=== PATIENT | female | born 1995 | race American Indian/Alaskan Native ===

== ENCOUNTER 2018-03-10 12:38 | Emergency (ER) | payer OTHER ==
--- NOTE | 2018-03-10 13:09 | Emergency Department Report ---
ED HPI - General Chief complaint: Vaginal Bleeding Stated complaint: 15 WEEKS /HEAVY BLEEDING/CHEST PAIN Source: patient Mode of arrival: Ambulatory Limitations: No Limitations - History of Present Illness Initial comments: This is a 22 year-old female that is 15 weeks with abdominal pain and vaginal bleeding for 2 weeks. Patient states bleeding initially started out as spotting which has increased today requiring use of a panty liner. Patient states she changed panty liner every hour. She also reports some intermittent cramping to suprapubic region. Last menstrual period was 11/25/2017, A0. Patient's GRADING M[facility]INE [facility]ER is Dr. Kurt Yusuf in [place]. Patient states she was seen there on March 01 and diagnosed with a UTI. She completed antibiotics. She denies frequency, urgency, dysuria, vaginal discharge, or back pain. MD Complaint: abdominal pain, vaginal bleeding Onset/Timin -: week(s) Location: pelvis Radiation: none Severity: mild Severity scale (0 -10): 2 Quality: cramping Consistency: intermittent Improves with: none Worsens with: none Associated symptoms: vaginal bleeding, abdominal pain. denies: nausea/vomiting, vaginal discharge, dysuria, headache, vision changes, malaise, dysparuenia, rash, seizure, shortness of breath, syncope, weakness Vaginal bleeding: light :: Yes Number of weeks : 15 OB History - Current : no complications Last menstrual period: 11/25/17 Pre-josselin care: followed by OB - Related Data : 1 Para: 0 Ab: 0 Allergies Allergy/AdvReac Type Severity Reaction Status Date / Time No Known Allergies Allergy Verified 03/10/18 13:01 ED Review of Systems ROS: Stated complaint: 15 WEEKS /HEAVY BLEEDING/CHEST PAIN Other details as noted in HPI Constitutional: denies: chills, fever Respiratory: denies: cough, shortness of breath, wheezing Cardiovascular: denies: chest pain, palpitations Gastrointestinal: abdominal pain. denies: nausea, diarrhea Genitourinary: other (vaginal bleed and/or ). denies: urgency, dysuria, discharge Musculoskeletal: denies: back pain, joint swelling, arthralgia Neurological: denies: headache, weakness, paresthesias Psychiatric: denies: anxiety, depression ED Past Medical Hx - Past Medical History Previous Medical History?: No - Surgical History Past Surgical History?: No - Social History Smoking Status: Never Smoker ED Physical Exam - General Limitations: No Limitations General appearance: alert, in no apparent distress - Respiratory Respiratory exam: Present: normal lung sounds bilaterally. Absent: respiratory distress - Cardiovascular Cardiovascular Exam: Present: regular rate, normal rhythm. Absent: systolic murmur, diastolic murmur, rubs, gallop - GI/Abdominal GI/Abdominal exam: Present: soft, tenderness (suprapubic tenderness), normal bowel sounds. Absent: distended, guarding, rebound, rigid, organomegaly, mass - Back Exam Back exam: Absent: CVA tenderness (R), CVA tenderness (L) - Neurological Exam Neurological exam: Present: alert, oriented X3 - Psychiatric Psychiatric exam: Present: normal affect, normal mood - Skin Skin exam: Present: warm, dry, intact, normal color. Absent: rash ED Course Vital Signs 03/10/18 03/10/18 12:46 14:55 Temperature 97.8 F Pulse Rate 128 H 88 Respiratory 16 18 Rate Blood Pressure 128/73 O2 Sat by Pulse 99 Oximetry ED Medical Decision Making - Lab Data Result diagrams: 03/10/18 13:13 Lab Results 03/10/18 03/10/18 03/10/18 Range/Units 13:00 13:13 13:13 WBC 10.3 (4.5-11.0) K/mm3 RBC 4.06 (3.65-5.03) M/mm3 Hgb 12.8 (10.1-14.3) gm/dl Hct 38.1 (30.3-42.9) % MCV 94 (79-97) fl MCH 31 (28-32) pg MCHC 33 (30-34) % RDW 14.2 (13.2-15.2) % Plt Count 216 (140-440) K/mm3 Lymph % (Auto) 17.2 (13.4-35.0) % Towns % (Auto) 6.6 (0.0-7.3) % Eos % (Auto) 0.5 (0.0-4.3) % Baso % (Auto) 0.3 (0.0-1.8) % Lymph # 1.8 (1.2-5.4) K/mm3 [place] # 0.7 (0.0-0.8) K/mm3 Eos # 0.1 (0.0-0.4) K/mm3 Baso # 0.0 (0.0-0.1) K/mm3 Seg Neutrophils % 75.4 H (40.0-70.0) % Seg Neutrophils # 7.8 H (1.8-7.7) K/mm3 HCG, Quant (0-4) mIU/mL Urine Color Yellow (Yellow) Urine Turbidity Slightly-cloudy (Clear) Urine pH 6.0 (5.0-7.0) Ur Specific [place] 1.019 (1.003-1.030) Urine Protein <15 mg/dl (Negative) mg/dL Urine Glucose (UA) Neg (Negative) mg/dL Urine Ketones 80 (Negative) mg/dL Urine Blood Sm (Negative) Urine Nitrite Neg (Negative) Urine Bilirubin Neg (Negative) Urine Urobilinogen < 2.0 (<2.0) mg/dL Ur Leukocyte Esterase Lg (Negative) Urine WBC (Auto) 6.0 (0.0-6.0) /HPF Urine RBC (Auto) 15.0 (0.0-6.0) /HPF U Epithel Cells (Auto) 5.0 (0-13.0) /HPF Urine Bacteria (Auto) 1+ (Negative) /HPF Urine Mucus 1+ /HPF Blood Type A POSITIVE Antibody Screen Negative 03/10/18 Range/Units 13:13 WBC (4.5-11.0) K/mm3 RBC (3.65-5.03) M/mm3 Hgb (10.1-14.3) gm/dl Hct (30.3-42.9) % MCV (79-97) fl MCH (28-32) pg MCHC (30-34) % RDW (13.2-15.2) % Plt Count (140-440) K/mm3 Lymph % (Auto) (13.4-35.0) % [place] % (Auto) (0.0-7.3) % Eos % (Auto) (0.0-4.3) % Baso % (Auto) (0.0-1.8) % Lymph # (1.2-5.4) K/mm3 [place] # (0.0-0.8) K/mm3 Eos # (0.0-0.4) K/mm3 Baso # (0.0-0.1) K/mm3 Seg Neutrophils % (40.0-70.0) % Seg Neutrophils # (1.8-7.7) K/mm3 HCG, Quant [id number] H (0-4) mIU/mL Urine Color (Yellow) Urine Turbidity (Clear) Urine pH (5.0-7.0) Ur Specific [place] (1.003-1.030) Urine Protein (Negative) mg/dL Urine Glucose (UA) (Negative) mg/dL Urine Ketones (Negative) mg/dL Urine Blood (Negative) Urine Nitrite (Negative) Urine Bilirubin (Negative) Urine Urobilinogen (<2.0) mg/dL Ur Leukocyte Esterase (Negative) Urine WBC (Auto) (0.0-6.0) /HPF Urine RBC (Auto) (0.0-6.0) /HPF U Epithel Cells (Auto) (0-13.0) /HPF Urine Bacteria (Auto) (Negative) /HPF Urine Mucus /HPF Blood Type Antibody Screen - Radiology Data Radiology results: report reviewed OB ULTRASOUND GREATER THAN 14 WEEKS INDICATION: Suprapubic pain and vaginal bleeding. COMPARISON: None similar at this institution. TECHNIQUE: Transabdominal grayscale ultrasound with Doppler interrogation. Gestation: Link Position: Cephalic Amniotic Fluid: WNL (< 24 weeks, subjective) Placenta: Posterior Placental Grade: 0 Heart Rate: 170 BPM Cervical length: 3.2 cm (Normal > 3 cm) It is too early for a anatomical survey BPD: 3.2 cm = 15 w 6 d HC: 11.7 cm = 15 w 5 d AC: 9.7 cm = 15 w 6 d FL: 1.7 cm = 15 w 0 d HC/AC Ratio: 1.2 Cephalic Index: 82.9 Clinical age = 15 w 0 d EDC: 09/01/2018 US Gest. Age = 15 w 4 d EDC: 08/28/2018 CONCLUSION: Single, viable intrauterine gestation with ultrasound estimated age of 15 weeks and 4 days and EDC of 08/28/2018, currently in cephalic lie with details, as above. - Medical Decision Making This is a 22 y.o. female presents with vaginal bleeding during for 2 weeks. Patient was examined by me. Vitals are normal and patient is in no acute distress. Obtained a labs and OB ultrasound. Quant [id number], all other labs unremarkable. Single, viable intrauterine gestation with ultrasound estimated age of 15 weeks and 4 days and EDC of 08/28/2018, currently in cephalic lie with details, as above. Patient instructed to follow up with [employer]. Patient discharged home in stable condition. Critical care attestation.: If time is entered above; I have spent that time in minutes in the direct care of this critically ill patient, excluding procedure time. ED Disposition Clinical Impression: Vaginal bleeding before 22 weeks gestation, Threatened miscarriage Pelvic pain affecting Qualifiers: Trimester: second trimester Qualified Code(s): O26.892 - Other specified related conditions, second trimester Disposition: DC- TO HOME OR SELFCARE Is pt being admited?: No Does the pt Need Aspirin: No Condition: Stable Instructions: Threatened Miscarriage (ED), (ED) Additional Instructions: Follow up with [employer]. Remain on bed rest. Follow up with [facility] [facility]INE [employer] in 24-48 hours. Return to ER if increased vaginal bleeding, abdominal pain, and low back pain. Referrals: KURT YUSUF MD [Primary Care Provider] - 3-5 Days Forms: Accompanied Note, Work/School Release Form(ED) Time of Disposition: 14:47
[2018-03-10 13:16] LABS: Bacteria,Urine 1+ /HPF (Negative); Bilirubin,Urine NEG (Negative); Blood,Urine SM (Negative); Color,Urine Yellow (Yellow); Mucus,Urine 1+ /HPF; Protein,Urine <15 mg/dL mg/dL (Negative); Urobilinogen,Urine < 2.0 mg/dL (<2.0)
[2018-03-10 13:28] LABS: Basophils % (Auto) 0.3 % (0.0-1.8); Eosinophils # (Auto) 0.1 K/mm3 (0.0-0.4); Eosinophils % (Auto) 0.5 % (0.0-4.3); Hematocrit 38.1 % (30.3-42.9); Hemoglobin 12.8 gm/dl (10.1-14.3); Lymphocytes # (Auto) 1.8 K/mm3 (1.2-5.4); Lymphocytes % (Auto) 17.2 % (13.4-35.0); Mean Corpuscular HGB Conc 33 % (30-34); Mean Corpuscular Volume 94 fl (79-97); Monocytes # (Auto) 0.7 K/mm3 (0.0-0.8); Monocytes % (Auto) 6.6 % (0.0-7.3); Platelet Count 216 K/mm3 (140-440); Red Blood Count 4.06 M/mm3 (3.65-5.03); Red Cell Distribution Width 14.2 % (13.2-15.2)
--- NOTE | 2018-03-10 14:31 | Ultrasound Report ---
OB ULTRASOUND GREATER THAN 14 WEEKS INDICATION: Suprapubic pain and vaginal bleeding. COMPARISON: None similar at this institution. TECHNIQUE: Transabdominal grayscale ultrasound with Doppler interrogation. Gestation: Link Position: Cephalic Amniotic Fluid: WNL (< 24 weeks, subjective) Placenta: Posterior Placental Grade: 0 Heart Rate: 170 BPM Cervical length: 3.2 cm (Normal > 3 cm) It is too early for a anatomical survey BPD: 3.2 cm = 15 w 6 d HC: 11.7 cm = 15 w 5 d AC: 9.7 cm = 15 w 6 d FL: 1.7 cm = 15 w 0 d HC/AC Ratio: 1.2 Cephalic Index: 82.9 Clinical age = 15 w 0 d EDC: 09/01/2018 US Gest. Age = 15 w 4 d EDC: 08/28/2018 CONCLUSION: Single, viable intrauterine gestation with ultrasound estimated age of 15 weeks and 4 days and EDC of 08/28/2018, currently in cephalic lie with details, as above. Thank you for the opportunity to participate in this patient's care.
[2018-03-12 12:06] VITALS: BP 128/73
== END 2018-03-10 14:56 | disposition home or self-care (01) ==
LOC: ED 12:38
DX: O20.0 Threatened abortion (principal); Z3A.22 22 weeks gestation of pregnancy
CPT/HCPCS: 36415; 76805; 81001; 84702; 85025; 86850; 86900; 86901

== ENCOUNTER 2018-04-22 09:44 | Emergency (ER) | payer OTHER ==
[2018-04-22] MEDS ORDERED: NACL 0.9% 1000 ML 1,000 ML IV ONE (10:21)
--- NOTE | 2018-04-22 10:28 | Emergency Department Report ---
ED Trauma HPI - General Chief Complaint: Fall Stated Complaint: FALL/R EYE INJURY Time Seen by Provider: 04/22/18 10:06 - History of Present Illness Initial Comments: This is a 22-year-old female who is said to be 5 months . The patient herself is not providing much historical information. She will barely tell me her name and follow directions. She appears to be with depressed or flat affect but not in obvious distress. She is here with her boyfriend's mother and boyfriend. The mother reports that the patient slipped on the stairs striking her orbital area of her right eye on a wooden railing. The exact mechanism of injury was somewhat vague in terms of whether the patient had a secondary injury to any other part of her body. The boyfriend's mother tells me that she did not tumble down the stairs. The boyfriend's mother states that she just slipped. No loss of consciousness is reported. No secondary impact to the patient's IV is reported. On preliminary examination, the patient's right palpebral fissure does have significant but not profuse bleeding. There is substantial ecchymosis and swelling of the periorbital area on the right such that the effected globe itself cannot be visualized. Acute ruptured is suspected and cannot be excluded. In addition, she does have either some degree of altered mental status vs unusual response after head trauma, therefore a code trauma was called. I could not exclude both ruptured globe and traumatic brain injury. Occurred: just prior to arrival Severity: severe Pain Location: other (denies neck pain or any other sore area) Allergies/Adverse Reactions: Allergies No Known Allergies Allergy (Verified 04/22/18 09:47) ED Review of Systems ROS: Stated complaint: FALL/R EYE INJURY Other details as noted in HPI Comment: Unobtainable due to pts medical conditions ED Past Medical Hx - Past Medical History Previous Medical History?: No Additional medical history: 5 months gestation - Surgical History Past Surgical History?: No - Social History Smoking Status: Never Smoker Substance Use Type: None ED Physical Exam - General Limitations: Altered Mental Status, Physical Limitation General appearance: in no apparent distress, lethargic (somewhat) - Head Head exam: Present: normocephalic, other (periorbital ecchymosis and about 3-4 cm eyebrow laceration) - Eye Eye exam: Present: periorbital swelling, periorbital tenderness, other (substantial ecchymosis and swelling of the periorbital area such that the globe itself cannot be visualized) - ENT ENT exam: Present: mucous membranes moist, other (no gross nasal deformity. No airway issue) - Neck Neck exam: Present: normal inspection. Absent: tenderness, meningismus - Respiratory Respiratory exam: Present: normal lung sounds bilaterally. Absent: respiratory distress - Cardiovascular Cardiovascular Exam: Present: regular rate, normal rhythm. Absent: systolic murmur, diastolic murmur, rubs, gallop - GI/Abdominal GI/Abdominal exam: Present: soft, normal bowel sounds, other (uterus at least 5 months). Absent: distended, guarding, rebound - Extremities Exam Extremities exam: Present: normal inspection, full ROM. Absent: calf tenderness - Back Exam Back exam: Present: normal inspection. Absent: CVA tenderness (R), CVA tenderness (L), muscle spasm, paraspinal tenderness, vertebral tenderness - Neurological Exam Neurological exam: Present: alert, oriented X3, motor sensory deficit. Absent: CN II-XII intact (right eye examination is precluded) - Psychiatric Psychiatric exam: Present: normal affect, normal mood - Skin Skin exam: Present: warm, dry, intact, normal color. Absent: rash ED Course Vital Signs 04/22/18 04/22/18 10:01 10:21 Temperature 98.6 F Pulse Rate 85 90 Respiratory 18 Rate Blood Pressure 128/70 Blood Pressure 128/70 [Left] O2 Sat by Pulse 100 Oximetry - Reevaluation(s) Reevaluation #1: I reviewed the CT images immediately when obtained. It was consistent to me with right globe rupture. Therefore I immediately called the trauma center at [place] to initiate transfer. I have not yet received a call back. I am concerned that this may be an irretrievable eye injury though. In any case, we are proceeding with emergency transfer the patient. The police have responded to investigate the circumstances of injury. 04/22/18 11:13 Reevaluation #2: Patient just accepted. Transfer was initiated. Patient stabilized his degree possible to this facility. We will place a eye shield if available or otherwise protective barrier. 04/22/18 11:15 Reevaluation #3: Patient found upside down in the [place]. Nurses were informed. Patient is repositioned. She is informed as to the severity of her eye injury. It does appear that she is not responding appropriately. CT of the head did not show evidence of intracranial injury. 04/22/18 11:22 ED Medical Decision Making - Lab Data Result diagrams: 04/22/18 10:23 04/22/18 10:24 Laboratory Results - last 24 hr 04/22/18 04/22/18 04/22/18 10:23 10:24 10:24 WBC 15.3 H RBC 4.05 Hgb 12.8 Hct 37.3 MCV 92 MCH 32 MCHC 34 RDW 13.3 Plt Count 246 Lymph % (Auto) 20.9 [place] % (Auto) 6.3 Eos % (Auto) 0.6 Baso % (Auto) 0.3 Lymph # 3.2 [place] # 1.0 H Eos # 0.1 Baso # 0.1 Seg Neutrophils % 71.9 H Seg Neutrophils # 11.0 H PT 12.5 INR 0.88 APTT 24.7 Sodium 135 L Potassium 3.2 L Chloride 101.3 Carbon Dioxide 20 L Anion Gap 17 BUN 7 Creatinine 0.4 L Estimated GFR > 60 BUN/Creatinine Ratio 18 Glucose 82 Calcium 8.9 - Radiology Data Radiology results: report reviewed Critical Care Time: Yes Critical care time in (mins) excluding proc time.: 60 Critical care attestation.: If time is entered above; I have spent that time in minutes in the direct care of this critically ill patient, excluding procedure time. ED Disposition Clinical Impression: Ruptured globe of right eye Qualifiers: Encounter type: initial encounter Qualified Code(s): S05.31XA - Ocular laceration without prolapse or loss of intraocular tissue, right eye, initial encounter Laceration of eyebrow, right Qualifiers: Encounter type: initial encounter Qualified Code(s): S01.111A - Laceration without foreign body of right eyelid and periocular area, initial encounter Disposition: DC/TX-70 ANOTHER TYPE [facility]ARE Is pt being admited?: No Does the pt Need Aspirin: No Condition: Stable Time of Disposition: 11:24
[2018-04-22 10:50] LABS: Basophils # (Auto) 0.1 K/mm3 (0.0-0.1); Basophils % (Auto) 0.3 % (0.0-1.8); Eosinophils # (Auto) 0.1 K/mm3 (0.0-0.4); Eosinophils % (Auto) 0.6 % (0.0-4.3); Hematocrit 37.3 % (30.3-42.9); Hemoglobin 12.8 gm/dl (10.1-14.3); Lymphocytes # (Auto) 3.2 K/mm3 (1.2-5.4); Lymphocytes % (Auto) 20.9 % (13.4-35.0); Mean Corpuscular HGB Conc 34 % (30-34); Mean Corpuscular Volume 92 fl (79-97); Monocytes % (Auto) 6.3 % (0.0-7.3); Platelet Count 246 K/mm3 (140-440); Red Blood Count 4.05 M/mm3 (3.65-5.03); Red Cell Distribution Width 13.3 % (13.2-15.2)
[2018-04-22 11:03] LABS: BUN/Creatinine Ratio 18; Blood Urea Nitrogen 7 mg/dL (7-17); Calcium 8.9 mg/dL (8.4-10.2); Hemolysis Index 19
[2018-04-22 11:08] LABS: INR 0.88 (0.87-1.13)
[2018-04-22 11:10] LABS: Partial Thromboplastin Time 24.7 Sec. (24.2-36.6)
--- NOTE | 2018-04-22 11:11 | Cat Scan Report ---
PROCEDURE: CT HEAD/BRAIN WO CON TECHNIQUE: CT examination of the head without IV contrast HISTORY: headache COMPARISONS: None FINDINGS: Nonspecific atypical appearance of the right ocular globe. Correlate for prosthesis, other prior surg jesus, injury, or disease. No acute air-fluid level visualized in the included air-filled sinuses. Bone windows demonstrate no acute fracture. The brain is without mass, mass effect, hemorrhage, or acute infarct. There is no extra-axial intracranial bleed, brain bleed, or midline shift. The ventricles and sulci are age-appropriate. IMPRESSION: No acute CVA, intracranial bleed, or brain mass This document is electronically signed by Leobardo Watts MD., April 22 2018 11:09:00 AM ET
--- NOTE | 2018-04-22 11:43 | Cat Scan Report ---
PROCEDURE: CT ORBIT WO CON TECHNIQUE: CT examination of the orbits without IV contrast HISTORY: R eye trauma COMPARISONS: Head CT 04/22/2018 FINDINGS: The right ocular globe is abnormally shaped with suggestion of ruptured globe, given history of right eye trauma. The anterior chamber and vitreous humor are not separately identified and replaced with hyperdense material suggestive of anterior chamber and vitreous hemorrhage. Slight thickening of the right inferior rectus muscle may reflect posttraumatic edema and/or hematoma . There is right preorbital soft tissue swelling. Slight fat stranding posterior to the collapsed right ocular globe may reflect anterior intraorbital posttraumatic edema and/or hemorrhage. Paranasal sinuses are clear. Mastoid air cells and middle ear cavities are clear. Orbital tracy are i ntact without fracture. No evidence of fracture in general. IMPRESSION: In the setting of trauma, findings are most compatible with ruptured right ocular globe with hemorrha ge/hematoma in the anterior and posterior chambers likely obscuring the ocular lens. Slight thickening of the inferior rectus muscle may reflect posttraumatic edema and/or hematoma Right preorbital soft tissue swelling Slight fat stranding posterior to the collapsed right ocular globe may reflect anterior intraorbital posttraumatic edema and/or hemorrhage This document is electronically signed by Leobardo Watts MD., April 22 2018 11:41:04 AM ET
[2018-04-22] MEDS ORDERED: BOOSTRIX IM ONE (12:11)
[2018-04-22] MEDS ORDERED: TENIVAC IM ONE (12:36)
[2018-04-22 13:56] VITALS: BP 110/85
== END 2018-04-22 13:55 | disposition other institution (70) ==
LOC: ED 09:44
DX: O26.891 Other specified pregnancy related conditions, first trimester (principal); O9A.211 Injury, poisoning and certain other consequences of external causes complicating pregnancy, first trimester; S05.31XA Ocular laceration without prolapse or loss of intraocular tissue, right eye, initial encounter; S01.111A Laceration without foreign body of right eyelid and periocular area, initial encounter; Z3A.01 Less than 8 weeks gestation of pregnancy; W01.198A Fall on same level from slipping, tripping and stumbling with subsequent striking against other object, initial encounter; Y93.89 Activity, other specified; Y92.89 Other specified places as the place of occurrence of the external cause; Y99.8 Other external cause status
CPT/HCPCS: 36415; 70450; 70480; 80048; 85025; 85610; 85730; 90714; 99291; J7030; 90715